=== PATIENT | female | born 1945 | race Caucasian/White ===

== ENCOUNTER → 2018-04-29 09:40 | Outpatient (CLI) | payer MEDICARE, OTHER, SELFPAY ==
--- NOTE | 2018-04-29 09:49 | XR_ITS ---
XR chest 2V HISTORY: ITS.REASON: PULMONARY MAC, ASPERGILLOSIS,NODULE,COPD ORDERING PHYSICIAN: Manuel Reeder PATIENT AGE: 72 years COMPARISON: 09/12/2014 FINDINGS: Unremarkable cardiovascular structures. There are chronic changes present with COPD with some patchy increased density in the right middle and right lower lobe and left lower lobe. This is somewhat progressed compared to the previous exam. The no recent radiographs are available for comparison. There is levoscoliosis of the lumbar spine. There has been interval kyphoplasty at L2 with wedge compression changes of L2 with retrolisthesis of L2 x 6 mm. IMPRESSION: Chronic changes with increased density in the right middle lobe, right lower lobe, and left lower lobe which may be related to superimposed pneumonia.
== END ==
PROVIDERS: PCP Family Medicine; Visit Provider Internal Medicine Infectious Disease
DX: A31.0 Pulmonary mycobacterial infection (principal); B44.1 Other pulmonary aspergillosis; R91.1 Solitary pulmonary nodule; R63.6 Underweight; R84.5 Abnormal microbiological findings in specimens from respiratory organs and thorax; J44.9 Chronic obstructive pulmonary disease, unspecified; G20 Parkinson's disease; Z87.01 Personal history of pneumonia (recurrent)
CPT/HCPCS: 71046

== ENCOUNTER → 2018-05-12 08:50 | Outpatient (REF) | payer MEDICARE, OTHER, SELFPAY | LOC: LAB 08:50 | PROVIDERS: Visit Provider Internal Medicine Infectious Disease | DX: G20 Parkinson's disease (principal); H35.30 Unspecified macular degeneration; A31.0 Pulmonary mycobacterial infection; B44.1 Other pulmonary aspergillosis; R91.1 Solitary pulmonary nodule; R63.6 Underweight; R84.5 Abnormal microbiological findings in specimens from respiratory organs and thorax; J44.9 Chronic obstructive pulmonary disease, unspecified | CPT/HCPCS: 87116; 87206 ==

== ENCOUNTER → 2018-05-13 08:59 | Outpatient (REF) | payer MEDICARE, OTHER, SELFPAY | LOC: LAB 08:59 | PROVIDERS: Visit Provider Internal Medicine Infectious Disease | DX: A31.0 Pulmonary mycobacterial infection (principal); B44.1 Other pulmonary aspergillosis; R91.1 Solitary pulmonary nodule; R63.6 Underweight; R84.5 Abnormal microbiological findings in specimens from respiratory organs and thorax; J44.9 Chronic obstructive pulmonary disease, unspecified; H35.30 Unspecified macular degeneration; G20 Parkinson's disease | CPT/HCPCS: 87116; 87206 ==

== ENCOUNTER → 2018-08-07 10:35 | Outpatient (CLI) | payer MEDICARE, SELFPAY ==
--- NOTE | 2018-08-07 10:42 | XR_ITS ---
EXAM: XR lumbar spine min 4V HISTORY: ITS.REASON: LOW BACK PAIN ORDERING PHYSICIAN: Haris Herrera MD PATIENT AGE: 72 years COMPARISON: 11/27/2016 FINDINGS: There is moderate to severe lumbar scoliosis convex left measuring 29 degrees. This previously measured 20 degrees. There has been prior kyphoplasty at L1. There is nonmillimeters left lateral translation of L3 on L4. The lateral view is somewhat limited due to the scoliosis and radiographic technique. There does appear to have been increase in wedging of L3 compared to 11/27/2016. This is most evident on the AP and oblique images but not well-demonstrated on the lateral images. Consider MRI or CT for further evaluation due to the limitation. No obvious lytic or blastic change. Multilevel degenerative disc disease and facet arthritic changes noted IMPRESSION: 1. Slight increase in levoscoliosis 2. Status post kyphoplasty at L1. 3. Slight increased wedging of L3 4. Degenerative disc disease
== END ==
PROVIDERS: PCP Family Medicine; Visit Provider Family Medicine
DX: M54.5 Low back pain (principal)
CPT/HCPCS: 72110

== ENCOUNTER → 2018-09-08 07:47 | Outpatient (CLI) | payer MEDICARE, SELFPAY ==
--- NOTE | 2018-09-08 07:49 | CT_ITS ---
CT lumbar spine wo con INDICATION: ITS.REASON: LOW BACK PAIN ORDERING PHYSICIAN: Haris Herrera MD PATIENT AGE: 73 years COMPARISON: 11/27/2016 TECHNIQUE: Axial images obtained with sagittal and coronal reformats. All CT scans at the facility use one or more dose reduction, viz: automated exposure control, ma/kV adjustment per patient size (including targeted exams where dose is matched to indication, i.e. head), or iterative reconstruction technique. FINDINGS: There is moderate mid and upper lumbar scoliosis convex left measuring 35 degrees by the Verma technique. Status post vertebroplasty at L1 with 60% anterior wedge compression changes of L1. L1 is the apex of the scoliosis. Prior kyphoplasty at this level. There is minimal retropulsion of the posterior superior aspect of L1 by approximately 5 mm. L2 has an unremarkable appearance. L2-L3: Wedge compression changes involve the L3 vertebral body with loss of height superiorly of approximately 20%. There is 7 mm left lateral translation of L2 on L3 L3-L4: Degenerative disc disease. There is 8 mm left lateral translation of L3 on L4 with degenerative disc disease and bulging disc. There is mild wedge compression changes involving the superior endplate of L4 approximately 10% with mild posterior region of L4 along with facet and ligamentum flavum hypertrophy with bilateral lateral recess narrowing. L4-5: Degenerative disc disease with bulging disc. There is mild wedging involving the superior endplate of L5 anteriorly of 25-30% appears old. Bulging discs present at this level with facet and ligamentum hypertrophy with bilateral lateral recess and foraminal narrowing. L5-S1 has an unremarkable appearance. There are fibrotic changes in the lung bases with bronchial thickening. IMPRESSION: Abnormal CT of the lumbar spine with scoliosis and multiple wedge compression changes, status post L1 vertebroplasty with multilevel lumbar spondylosis with bulging disc along with facet and ligamentum flavum hypertrophy with lateral recess and foraminal narrowing. Kyphoscoliosis is present of the thoracolumbar junction. Please see above for detailed description at each level.
== END ==
PROVIDERS: PCP Family Medicine; Visit Provider Family Medicine
DX: M54.5 Low back pain (principal)
CPT/HCPCS: 72131

== ENCOUNTER → 2018-09-15 08:12 | Outpatient (POV) | payer MEDICARE, SELFPAY | PROVIDERS: Visit Provider Nurse Practitioner Acute Care | DX: Z00.00 Encounter for general adult medical examination without abnormal findings (principal) ==

== ENCOUNTER → 2018-10-10 08:45 | Outpatient (CLI) | payer MEDICARE, SELFPAY ==
--- NOTE | 2018-10-10 08:51 | NM_ITS ---
NM bone scan limited area CLINICAL INDICATION: ITS.REASON: LOWER BACK PAIN ORDERING PHYSICIAN: Stevie Alegria PATIENT AGE: 73 years Comparison: 09/08/2018 FINDINGS: Static images are obtained of the thoracic and lumbar spine. There is a moderate lumbar scoliosis convex left. Focal increased activity involves L1 on the left. The patient has had a prior vertebral plasty at L1. Increased activity is noted on the left and right at L2 and to a greater degree on the left and right at L3. There is mild left lateral translation of L3 on L4. Slight increased activity involves the left aspect of L4 and L5. FINDINGS all correspond to degenerative changes were noted on previous CT scan of 09/08/2018.. The increased activity at L3 may also be related to the wedge compression changes as well as noted on previous CT scan. The thoracic spine has an unremarkable appearance. There is slight increased activity involving right 10th rib posteriorly IMPRESSION: Lumbar scoliosis convex left with multiple areas of increased activity corresponding to the degenerative changes noted on the L-spine CT scan as well as a compression changes at L3
--- NOTE | 2018-10-10 14:27 | HMH.ITSHM ---
Current Home Medications as stated by this patient Niya Sneed or community health program representative. []AMANTADINE TRAZADONE CHLORDIAZEPOXIDE VITAMIN C B COMPLEX ACTONEL REQUIP
== END ==
PROVIDERS: PCP Family Medicine; Visit Provider Orthopaedic Surgery
DX: M54.6 Pain in thoracic spine (principal); M54.5 Low back pain
CPT/HCPCS: 78300; A9503

== ENCOUNTER → 2018-11-21 08:32 | Outpatient (CLI) | payer MEDICARE, SELFPAY ==
--- NOTE | 2018-11-21 08:40 | XR_ITS ---
XR DEXA axial skeleton HISTORY: ITS.REASON: L2 L3 COMPRESSION FX ORDERING PHYSICIAN: Stevie Alegria PATIENT AGE: 73 years COMPARISON: 05/17/2016 FINDINGS: The BMD measured at the Left femoral Total is 0.580 g/cm squared with a T score of -3.4. This is considered Osteoporotic according to the World Health Organization criteria. Fracture risk is High. Treatment is advised. L1 L4 density as a T score of -2.3 and has increased by 8% compared to the previous exam. Hip density has decreased by 7%. There is severe lumbar scoliosis convex left with prior kyphoplasty in the lumbar spine IMPRESSION: Osteoporosis with high fracture risk. Pharmacological treatment suggested. Recommend follow-up exam October 2019
== END ==
PROVIDERS: PCP Family Medicine; Visit Provider Orthopaedic Surgery
DX: M48.56XA Collapsed vertebra, not elsewhere classified, lumbar region, initial encounter for fracture (principal)
CPT/HCPCS: 77080

== ENCOUNTER 2018-12-16 09:05 | Outpatient (CLI) | payer MEDICARE, SELFPAY ==
[2018-12-16 09:30] VITALS: BP 115/68; PULSE 68; RESP 20; TEMP 36.9; O2SAT 98
== END 2018-12-16 10:20 | disposition home or self-care (01) ==
LOC: INF 09:05
PROVIDERS: Visit Provider Family Medicine
DX: M81.0 Age-related osteoporosis without current pathological fracture (principal)
CPT/HCPCS: 96372; J0897

== ENCOUNTER → 2019-01-05 10:40 | Outpatient (POV) | payer MEDICARE, SELFPAY | PROVIDERS: Visit Provider Nurse Practitioner Acute Care | DX: Z00.00 Encounter for general adult medical examination without abnormal findings (principal) ==

== ENCOUNTER → 2019-01-20 08:32 | Outpatient (CLI) | payer MEDICARE, SELFPAY ==
[2019-01-21 15:44] LABS: H. pylori Breath Test Positive (Negative)
== END ==
PROVIDERS: Visit Provider Nurse Practitioner Acute Care
DX: B96.81 Helicobacter pylori [H. pylori] as the cause of diseases classified elsewhere (principal); Z12.11 Encounter for screening for malignant neoplasm of colon
CPT/HCPCS: 83013

== ENCOUNTER → 2019-05-05 09:15 | Outpatient (CLI) | payer MEDICARE, SELFPAY ==
--- NOTE | 2019-05-05 09:21 | XR_ITS ---
XR chest 2V HISTORY: ITS.REASON: COPD,PARKINSONS DISEASE, ORDERING PHYSICIAN: Manuel Reeder PATIENT AGE: 73 years COMPARISON: 04/29/2018 FINDINGS: The cardiomediastinal silhouette and pulmonary vascularity are within normal limits. COPD. Chronic changes. Prior kyphoplasty in the lumbar spine at L1-L2 and L3. IMPRESSION: No change with no acute finding
== END ==
PROVIDERS: PCP Family Medicine; Visit Provider Internal Medicine Infectious Disease
DX: A31.0 Pulmonary mycobacterial infection (principal); B44.1 Other pulmonary aspergillosis; B96.81 Helicobacter pylori [H. pylori] as the cause of diseases classified elsewhere; K29.60 Other gastritis without bleeding; J44.9 Chronic obstructive pulmonary disease, unspecified; G20 Parkinson's disease; Z87.01 Personal history of pneumonia (recurrent); Z86.19 Personal history of other infectious and parasitic diseases
CPT/HCPCS: 71046

== ENCOUNTER 2019-06-19 12:57 | Outpatient (CLI) | payer MEDICARE, SELFPAY ==
[2019-06-19 13:07] VITALS: BP 149/90; PULSE 84; RESP 18
== END 2019-06-19 13:20 | disposition home or self-care (01) ==
LOC: INF 12:57
PROVIDERS: Visit Provider Family Medicine
DX: M81.0 Age-related osteoporosis without current pathological fracture (principal)
CPT/HCPCS: 96372; J0897

== ENCOUNTER 2019-12-21 08:45 | Outpatient (CLI) | payer MEDICARE, SELFPAY ==
[2019-12-21 09:01] VITALS: BP 155/93; PULSE 83; RESP 18; TEMP 36.6; O2SAT 98
== END 2019-12-21 09:24 | disposition home or self-care (01) ==
LOC: INF 08:45
PROVIDERS: Visit Provider Nurse Practitioner Family
DX: M81.0 Age-related osteoporosis without current pathological fracture (principal)
CPT/HCPCS: 96372; J0897

== ENCOUNTER → 2020-04-26 08:22 | Outpatient (CLI) | payer MEDICARE, SELFPAY ==
--- NOTE | 2020-04-26 08:33 | XR_ITS ---
PROCEDURE: XR CHEST 2V CLINICAL HISTORY: COPD COMPARISON: CXR CHEST(2 VIEWS-NOT PORTABLE) from 09/12/2014 CXR CHEST(2 VIEWS-NOT PORTABLE) from 10/26/[address] [facility] [address] CHEST W/O CONTRAST from 06/08/2016 CXR2V XR chest 2V from 04/29/2018 FINDINGS: The cardiomediastinal silhouette and pulmonary vascularity are within normal limits. COPD with pulmonary fibrotic changes are noted. There is increased density within the lingula may be due to underlying pneumonia. Suggest following till clear as this has a somewhat nodular appearance on frontal view. There is diffuse osteopenia. Prior kyphoplasty at L1 and L2. Lumbar curvature convex left. IMPRESSION: COPD with pulmonary fibrotic change with consolidation or infiltrate within the lingula. Suggest following till clear Dictated by: Valentín Hedrick MD 04/26/2020 16:34 Electronically signed by Valentín Hedrick MD in [place] 04/26/2020 16:34
== END ==
PROVIDERS: PCP Family Medicine; Visit Provider Internal Medicine Infectious Disease
DX: K29.60 Other gastritis without bleeding (principal); B96.81 Helicobacter pylori [H. pylori] as the cause of diseases classified elsewhere; A31.0 Pulmonary mycobacterial infection; B44.1 Other pulmonary aspergillosis; J44.9 Chronic obstructive pulmonary disease, unspecified; G20 Parkinson's disease
CPT/HCPCS: 71046

== ENCOUNTER 2020-06-22 14:07 | Outpatient (CLI) | payer MEDICARE, SELFPAY ==
[2020-06-22 14:17] VITALS: BP 152/64; PULSE 68; RESP 18; TEMP 36.3; O2SAT 98
== END 2020-06-22 14:17 | disposition home or self-care (01) ==
LOC: INF 14:07
PROVIDERS: Visit Provider Nurse Practitioner Family
DX: M81.0 Age-related osteoporosis without current pathological fracture (principal)
CPT/HCPCS: 96372; J0897

== ENCOUNTER 2020-07-14 11:00 | Outpatient (RCR) | payer MEDICARE, SELFPAY | END 2020-07-14 12:00 | disposition home or self-care (01) | LOC: PT 11:00 | PROVIDERS: PCP Family Medicine; Visit Provider Physician Assistant | DX: M70.61 Trochanteric bursitis, right hip (principal) | CPT/HCPCS: 20560; 97010; 97014; 97035; 97110; 97140; 97163; 97164; G0283 ==

== ENCOUNTER 2021-01-23 09:55 | Outpatient (CLI) | payer MEDICARE, SELFPAY ==
[2021-01-23 10:16] VITALS: BP 162/87; PULSE 69; RESP 18; TEMP 36.1; O2SAT 98
== END 2021-01-23 10:32 | disposition home or self-care (01) ==
LOC: INF 10:05
PROVIDERS: Visit Provider Family Medicine
DX: M81.0 Age-related osteoporosis without current pathological fracture (principal)
CPT/HCPCS: 96372; J0897

== ENCOUNTER 2021-07-26 09:28 | Outpatient (CLI) | payer MEDICARE, SELFPAY ==
[2021-07-26 09:55] VITALS: BP 141/87; PULSE 71; RESP 17; TEMP 36.4; O2SAT 96
== END 2021-07-26 09:57 | disposition home or self-care (01) ==
LOC: INF 09:29
PROVIDERS: PCP Family Medicine; Visit Provider Family Medicine
DX: M81.0 Age-related osteoporosis without current pathological fracture (principal)
CPT/HCPCS: 96372; J0897

== ENCOUNTER 2022-01-23 09:56 | Outpatient (CLI) | payer MEDICARE, SELFPAY ==
[2022-01-23 10:10] VITALS: BP 156/62; PULSE 61; RESP 18; TEMP 36.3; O2SAT 96
== END 2022-01-23 10:23 | disposition home or self-care (01) ==
LOC: INF 09:58
PROVIDERS: PCP Family Medicine; Visit Provider Nurse Practitioner Family
DX: M81.0 Age-related osteoporosis without current pathological fracture (principal)
CPT/HCPCS: 96372; J0897

== ENCOUNTER 2022-07-27 10:25 | Outpatient (CLI) | payer MEDICARE, SELFPAY ==
[2022-07-27 10:45] VITALS: BP 161/73; PULSE 68; RESP 18; O2SAT 96
== END 2022-07-27 11:00 | disposition home or self-care (01) ==
LOC: INF 10:29
PROVIDERS: PCP Nurse Practitioner Family; Visit Provider Nurse Practitioner Family
DX: Z78.0 Asymptomatic menopausal state (principal); M81.0 Age-related osteoporosis without current pathological fracture
CPT/HCPCS: 96372; J0897

== ENCOUNTER 2022-12-01 17:21 | Emergency (ER) | payer MEDICARE, SELFPAY ==
[2022-12-01 17:24] VITALS: BP 181/91; PULSE 89; RESP 26; TEMP 36.6; O2SAT 98; BMI 17.7
[2022-12-01 17:33] VITALS: BP 181/91; PULSE 84; O2SAT 97
--- NOTE | 2022-12-01 17:55 | XR_ITS ---
PROCEDURE INFORMATION: Exam: XR Chest Exam date and time: 12/01/2022 6:49 PM Age: 77 years old Clinical indication: Shortness of breath; Additional info: SOA, covid+ TECHNIQUE: Imaging protocol: Radiologic exam of the chest. Views: 1 view. COMPARISON: CT ANGIO CHEST PE PROTOCOL 12/01/2022 6:43 PM FINDINGS: Lungs: Unremarkable. No consolidation. Pleural spaces: Unremarkable. No pleural effusion. No pneumothorax. Heart/Mediastinum: Unremarkable. No cardiomegaly. Bones/joints: There is moderate thoracolumbar scoliosis. Evidence of prior vertebroplasty noted in the upper lumbar spine. Bones are otherwise unremarkable. IMPRESSION: No acute disease
--- NOTE | 2022-12-01 17:55 | HMH.EDGENADL ---
Discharge Plan Disposition Patient Disposition: Home, Self-Care Condition: Good Prescriptions Prescriptions: New Paxlovid (EUA) 300 mg (150 mg x 2)-100 mg tablets,dose pack See Rx Instructions .Route .COMPLEX Qty: 30 0RF Rx Instructions: take TWO 150 mg tablets of nirmatrelvir with ONE 100 mg tablet of ritonavir twice daily for 5 days levofloxacin 750 mg tablet 750 mg PO DAILY 5 Days Qty: 5 0RF No Action tramadol 50 mg tablet 50 mg PO Q6HP PRN (Reason: Pain) Label Comments: TAKE ONE TABLET BY MOUTH EVERY 6 TO 8 HOURS NEEDED MAY CAUSE DROWSINESS lorazepam 0.5 mg tablet 0.5 mg PO HS trazodone 300 mg tablet 300 mg PO HS Label Comments: TAKE ONE TABLET BY MOUTH EVERY DAY AT BEDTIME escitalopram oxalate 10 mg tablet 10 mg PO DAILY Label Comments: TAKE ONE TABLET BY MOUTH EVERY DAY cholecalciferol (vitamin D3) 25 mcg (1,000 unit) tablet 25 mcg PO DAILY Label Comments: TAKE ONE TABLET BY MOUTH EVERY DAY Referrals Follow up/Referrals: Haris Herrera MD [Primary Care Provider] - See instructions Activity Restrictions/Add. Instructions Additional Instructions/Restrictions: Paxlovid and Levaquin as prescribed. Do not take trazodone while taking these medications. ADDITIONAL INSTRUCTIONS FOR COVID-19: Rest, drink plenty of fluids. Tylenol or Ibuprofen for fever and/or aches and pains. Monitor your symptoms. IF YOU HAVE AN EMERGENCY WARNING SIGN (INCLUDING TROUBLE BREATHING), SEEK EMERGENCY MEDICAL CARE IMMEDIATELY. COVID-19 Isolation: People with COVID-19 should isolate for 5 days. Then if they are asymptomatic (no symptoms) or their symptoms are resolving (without fever for 24 hours), follow that by 5 days of wearing a mask when around others to minimize the risk of infecting people you encounter. If you test positive for COVID-19 and never develop symptoms, day 0 is the day of your positive viral test (based on the date you were tested) and day 1 is the first full day after your positive test. If you develop symptoms after testing positive, your 5-day isolation period must start over. Day 0 is your first day of symptoms. Day 1 is the first full day after your symptoms developed. What to do: Stay in a separate room from other household members, if possible. Use a separate bathroom, if possible. Avoid contact with other members of the household and pets. Don?t share personal household items, like cups, towels, and utensils. Wear a mask when around other people if able. Clinical Impressions Clinical Impression: COVID-19 virus infection, Pulmonary infiltrate Instructions Patient Instructions: DI for COVID-19 (Suspected or Confirmed ) Discharge ED Provider: Justyn Wagner General Adult HPI General Chief complaint: Shortness of Breath/Dyspnea Stated complaint: covid + SOB,Cough [place]ST[place] Diarrhea,Body Aches Time Seen by Provider: 12/01/22 17:55 Mode of Arrival: Wheelchair Source of Information: Patient Limitations: No Limitations Description of Symptoms (Recalled from ER Triage Doc. by RN): 77 F presents after having positive COVID home test on . She began having COVId like symptoms on Saturday. This date she presents tachypenic/SOA, generalized weakness, and cough. History of Present Illness HPI narrative: Patient complains of shortness of breath. She developed a cough on Saturday. Her daughter tested positive for COVID on that day. The next day the patient also tested positive for COVID on a home test. She has developed shortness of breath today has an achy pain in the center of her chest. Denies sputum production or hemoptysis. No leg pain or swelling. She has been vaccinated and is up-to-date on boosters for COVID. She does not have any chronic lung or heart problems. She is a non-smoker. Related Data Home Medications Medication Instructions Recorded Confirmed cholecalciferol (vitamin D3) 25 25 mcg PO DAILY Supp
[2022-12-01 18:00] VITALS: BP 167/88; PULSE 81; RESP 20; O2SAT 95
--- NOTE | 2022-12-01 18:00 | CT_ITS ---
PROCEDURE INFORMATION: Exam: CTA Chest With Contrast Exam date and time: 12/01/2022 6:43 PM Age: 77 years old Clinical indication: Shortness of breath; Additional info: Lilian, VALE and shahrzad TECHNIQUE: Imaging protocol: Computed tomographic angiography of the chest with contrast. 3D rendering (Not supervised by radiologist): MIP and/or 3D reconstructed images were created by the technologist. Radiation optimization: All CT scans at this facility use at least one of these dose optimization techniques: automated exposure control; mA and/or kV adjustment per patient size (includes targeted exams where dose is matched to clinical indication); or iterative reconstruction. Contrast material: ISOVUE; Contrast volume: 70 ml; Contrast route: INTRAVENOUS (IV); Other protocol: This patient has received 0 known CTs and 0 known cardiac nuclear medicine studies in the 12 months prior to the current study. COMPARISON: [facility] CT CHEST W/O CONTRAST 06/08/2016 1:03 PM FINDINGS: Pulmonary arteries: Normal. No pulmonary emboli. Aorta: Unremarkable. No aortic aneurysm. No aortic dissection. Lungs: Patchy diffusely distributed bilateral pulmonary infiltrates appear improved from the prior study. There is an 8 mm slightly spiculated nodule in the right lower lobe on axial image 70. A few other smaller scattered areas of nodular infiltrate are noted in both lungs. Pleural spaces: Unremarkable. No pneumothorax. No pleural effusion. Heart: Unremarkable. No cardiomegaly. No pericardial effusion. Lymph nodes: Unremarkable. No enlarged lymph nodes. Bones/joints: There is significant levoscoliosis of the thoracolumbar spine. Soft tissues: Unremarkable. IMPRESSION: 1. Interval improvement in mild patchy bilateral pulmonary infiltrates. This may reflect active pneumonitis and/or mild chronic interstitial lung changes. 2. Interval development of 8 mm slightly spiculated nodule in the right lower lobe. For patients at low risk (minimal or absent history of smoking and of other known risk factors), recommend CT Chest at 6-12 months, then consider CT Chest at 18-24 months. For patients at high risk (history of smoking or of other known risk factors), recommend CT Chest at 6-12 months, then CT Chest at 18-24 months. (Reference: Diane) References: Diane Cabrera et al. Guidelines for Management of Incidental Pulmonary Nodules Detected on CT Images: From the Fleischner Society 2017. Radiology. 2017;284(1):228-243.
[2022-12-01 18:16] LABS: Basophils % 0.6 % (0.1-2.0); Eosinophils % 0.3 % (0.1-12.0); Hematocrit 45.1 % (37.0-47.0); Hemoglobin 14.8 g/dL (12.2-16.2); Lymphocytes # 1.2 K/mm3 (0.7-4.5); Mean Corpuscular HGB Conc 32.9 g/dL (31.8-35.4); Mean Corpuscular Hemoglobin 30.4 pg (27.0-31.2); Mean Corpuscular Volume 92.6 fl (81-99); Mean Platelet Volume 8.3 fl (7.4-10.4); Monocytes # 0.5 K/mm3 (0.1-1.0); Neutrophils # 4.7 K/mm3 (1.8-7.8); Neutrophils % 72.2 % (37.0-80.0); Platelet Count 178 K/mm3 (142-424); Red Blood Count 4.87 M/mm3 (4.20-5.40); Red Cell Distribution Width 13.5 % (11.5-17.5); White Blood Count 6.6 K/mm3 (4.8-10.8)
[2022-12-01 18:17] LABS: Chloride 104 mmol/L (98-107)
[2022-12-01 18:18] LABS: Potassium 3.6 mmoL/L (3.5-5.1); Sodium 138 mmol/L (136-145)
[2022-12-01 18:20] LABS: Alanine Aminotransferase 28 U/L (12-78); Aspartate Amino Transferase 41 U/L (14-36); Blood Urea Nitrogen 7 mg/dl (7-17); Creatinine Clearance Estimated 37 mL/min (50-200); Estimated Glomerular Filt Rate 120 ml/min (>60); GFR (African American) 145 ML/MIN (>60)
[2022-12-01 18:21] LABS: Albumin Level 4.3 g/dl (3.5-5.0); Albumin/Globulin Ratio 1.3 (1.1-1.8); Alkaline Phosphatase 90 U/L (38-126); Anion Gap 11.6 mEq/L (5-15); Bilirubin,Total 0.5 mg/dl (0.2-1.3); Calcium 8.3 mg/dl (8.4-10.2); Carbon Dioxide 26 mmol/L (22.0-30.0); Globulin 3.2 g/dL (1.3-3.2); Glucose 122 mg/dl (74-100); Total Protein,Serum 7.5 g/dl (6.3-8.2)
[2022-12-01 18:30] LABS: NT Pro Brain Natriuretic Pep. 92.4 pg/mL (0-450)
[2022-12-01 18:39] LABS: Troponin I < 0.01 ng/ml (0.00-0.034)
[2022-12-01 19:00] VITALS: BP 156/77; PULSE 69; RESP 21; O2SAT 95
[2022-12-01 19:30] VITALS: BP 156/78; RESP 21; O2SAT 96
[2022-12-01 19:52] LABS: Influenza A, PCR Not Detected (NotDetected); Influenza B, PCR Not Detected (NotDetected)
--- NOTE | 2022-12-01 19:52 | PC.NURSE ---
Dr. Wagner at BS
--- NOTE | 2022-12-01 20:21 | PC.NURSE ---
Lab advised 14 minutes remaining on covid swab
[2022-12-01 20:31] VITALS: BP 155/77; PULSE 88; RESP 21; TEMP 36.8; O2SAT 97
[2022-12-01 20:38] LABS: Coronavirus 19, PCR Detected (NotDetected)
--- NOTE | 2022-12-01 20:40 | PC.NURSE ---
Dr. Wagner at updating pt of results
== END 2022-12-01 20:44 | disposition home or self-care (01) ==
PROVIDERS: Emergency Provider Emergency Medicine; PCP Family Medicine
DX: U07.1 COVID-19 (principal); R91.8 Other nonspecific abnormal finding of lung field; M81.0 Age-related osteoporosis without current pathological fracture; R06.02 Shortness of breath
CPT/HCPCS: 71045; 71275; 80053; 83880; 84484; 85025; 99285; C9803; Q9967; U0003; U0005

== ENCOUNTER 2023-01-24 09:00 | Outpatient (CLI) | payer MEDICARE, SELFPAY ==
[2023-01-24 09:17] VITALS: BP 167/81; PULSE 74; RESP 18; O2SAT 95
== END 2023-01-24 09:17 | disposition home or self-care (01) ==
PROVIDERS: PCP Family Medicine; Visit Provider Family Medicine
DX: M81.0 Age-related osteoporosis without current pathological fracture (principal)
CPT/HCPCS: 96372; J0897

== ENCOUNTER → 2023-06-10 16:08 | Outpatient (CLI) | payer MEDICARE, SELFPAY ==
[2023-06-10 16:35] LABS: Basophils % 0.7 % (0.1-2.0); Eosinophils # 0.2 K/mm3 (0.0-0.4); Eosinophils % 3.3 % (0.1-12.0); Hematocrit 44.3 % (37.0-47.0); Hemoglobin 13.9 g/dL (12.2-16.2); Lymphocytes # 1.4 K/mm3 (0.7-4.5); Lymphocytes % 24.2 % (10-50); Mean Corpuscular HGB Conc 31.4 g/dL (31.8-35.4); Mean Corpuscular Hemoglobin 30.4 pg (27.0-31.2); Mean Corpuscular Volume 96.7 fl (81-99); Mean Platelet Volume 8.2 fl (7.4-10.4); Monocytes # 0.4 K/mm3 (0.1-1.0); Neutrophils # 3.6 K/mm3 (1.8-7.8); Neutrophils % 64.7 % (37.0-80.0); Platelet Count 160 K/mm3 (142-424); Red Blood Count 4.58 M/mm3 (4.20-5.40); Red Cell Distribution Width 13.4 % (11.5-17.5); White Blood Count 5.6 K/mm3 (4.8-10.8)
[2023-06-10 17:15] LABS: Alanine Aminotransferase 19 U/L (12-78); Albumin Level 4.3 g/dl (3.5-5.0); Albumin/Globulin Ratio 1.7 (1.1-1.8); Alkaline Phosphatase 63 U/L (38-126); Anion Gap 9.7 mEq/L (5-15); Aspartate Amino Transferase 27 U/L (14-36); Bilirubin,Total 0.3 mg/dl (0.2-1.3); Blood Urea Nitrogen 8 mg/dl (7-17); Calcium 9.6 mg/dl (8.4-10.2); Carbon Dioxide 31 mmol/L (22.0-30.0); Chloride 103 mmol/L (98-107); Chol/HDL Ratio 2.4 (1-3.5); Cholesterol 251 mg/dl (140-200); Estimated Glomerular Filt Rate 81 ml/min (>60); GFR (African American) 98 ML/MIN (>60); Globulin 2.6 g/dL (1.3-3.2); Glucose 94 mg/dl (74-100); HDL Cholesterol 103 mg/dl (40-60); Potassium 3.7 mmoL/L (3.5-5.1); Sodium 140 mmol/L (136-145); Total Protein,Serum 6.9 g/dl (6.3-8.2); Triglycerides 98 mg/dl (30-150); VLDL Cholesterol 20 mg/dL (0-40)
[2023-06-10 17:26] LABS: Direct LDL Cholesterol 110.21 mg/dL (100-129)
[2023-06-10 17:31] LABS: Free T4 (Free Thyroxine) 1.06 ng/dl (0.78-2.19)
[2023-06-10 17:32] LABS: 25-OH Vitamin D, Total 55.3 ng/mL (30-100)
[2023-06-10 17:45] LABS: Thyroid Stimulating Hormone 1.05 uIU/mL (0.465-4.68)
[2023-06-10 19:33] LABS: Folate 7.02 ng/mL; Vitamin B12 > 1000 pg/mL (239-931)
== END ==
PROVIDERS: PCP Nurse Practitioner Family; Visit Provider Nurse Practitioner Family
DX: R53.1 Weakness (principal); I10 Essential (primary) hypertension; M81.0 Age-related osteoporosis without current pathological fracture; E53.8 Deficiency of other specified B group vitamins
CPT/HCPCS: 36415; 80053; 80061; 82306; 82607; 82746; 84439; 84443; 85025

== ENCOUNTER 2023-08-06 11:21 | Outpatient (CLI) | payer MEDICARE, SELFPAY ==
[2023-08-06 11:30] VITALS: BP 140/66; PULSE 80; RESP 18; TEMP 36.8; O2SAT 96
== END 2023-08-06 11:46 | disposition home or self-care (01) ==
LOC: INF 11:21
PROVIDERS: PCP Family Medicine; Visit Provider Family Medicine
DX: M81.0 Age-related osteoporosis without current pathological fracture (principal)
CPT/HCPCS: 96372; J0897

== ENCOUNTER 2024-03-10 13:18 | Outpatient (CLI) | payer MEDICARE, SELFPAY ==
[2024-03-10 13:25] VITALS: BP 141/82; PULSE 90; RESP 18; TEMP 36.2; O2SAT 96
[2024-03-10] MEDS: DENOSUMAB 60 MG/ML SYRINGE SQ (13:27)
== END 2024-03-10 13:45 | disposition home or self-care (01) ==
LOC: INF 13:19
PROVIDERS: PCP Family Medicine; Visit Provider Family Medicine
DX: M81.0 Age-related osteoporosis without current pathological fracture (principal)
CPT/HCPCS: 96372; J0897

== ENCOUNTER 2024-09-15 13:00 | Outpatient (CLI) | payer MEDICARE, SELFPAY ==
[2024-09-15 13:41] VITALS: BP 149/77; PULSE 72; RESP 18; TEMP 36.4; O2SAT 94
[2024-09-15] MEDS: DENOSUMAB 60 MG/ML SYRINGE SUBCUT (13:41)
== END 2024-09-15 13:55 | disposition home or self-care (01) ==
LOC: INF 13:02
PROVIDERS: PCP Family Medicine; Visit Provider Family Medicine
DX: M81.0 Age-related osteoporosis without current pathological fracture (principal)
CPT/HCPCS: 96372; J0897

== ENCOUNTER 2024-12-30 11:28 | Outpatient (CLI) | payer MEDICARE, SELFPAY ==
--- NOTE | 2024-12-30 11:36 | XR_ITS ---
FINAL REPORT CLINICAL HISTORY: RIB PAIN ON THE RIGHT SIDE COMPARISON: 12/01/2022 FINDINGS: PA and lateral views of the chest were obtained. No acute pulmonary density is evident. There are changes of emphysema. Chronic interstitial changes are noted. There is no evidence of pleural effusion. The mediastinum has a normal appearance. The cardiac silhouette is unremarkable. IMPRESSION: No acute findings. Reviewed, Interpreted and Dictated by Marge Vásquez MD Transcribed by Vesta Rodriguez Authenticated and . [facility]
== END 2024-12-30 23:59 | disposition home or self-care (01) ==
LOC: RAD 11:29
PROVIDERS: PCP Family Medicine; Visit Provider Family Medicine
DX: R07.81 Pleurodynia (principal)
CPT/HCPCS: 71046

== ENCOUNTER 2025-01-14 10:44 | Outpatient (CLI) | payer MEDICARE, SELFPAY ==
--- NOTE | 2025-01-14 10:48 | MM_ITS ---
PROCEDURE INFORMATION: Exam: MG Bilateral Screening 3D Mammography Exam date and time: 01/14/2025 10:53 AM Age: 79 years old Clinical indication: Screening. No family history of breast cancer. TECHNIQUE: Imaging protocol: Bilateral Screening tomosynthesis and 2D mammography including computer-aided detection (CAD) when performed. COMPARISON: 1. MG DMSB DIG MAMM-SCREEN SUDHEER W/CAD 10/29/2016 9:34 AM 2. MG DMDXUR DIG MAMM-DX UNI-RT 03/14/2016 11:15 AM 3. MG DMSB DIG MAMM-SCREEN SUDHEER 10/25/2015 3:04 PM 4. MG DMSB DIG MAMM-SCREEN SUDHEER 10/11/2014 1:40 PM FINDINGS: MAMMOGRAPHY: Breast composition: The breasts are heterogeneously dense, which may obscure small masses. Mass: Oval partly visualized approximately 0.8 cm mass in the right outer lower quadrant posterior 3rd about 6-8 cm from the nipple. Architectural distortion: None. Calcifications: No suspicious calcifications. Asymmetric density: None. Skin thickening: None. Axillary adenopathy: None. IMPRESSION: Patient will be recalled for right diagnostic mammography with spot compression CC and MLO and right sonography for further evaluation of a partly visualized mass. ASSESSMENT: BI-RADS Category 0: Incomplete: Need Additional Imaging Evaluation.
== END 2025-01-14 23:59 | disposition home or self-care (01) ==
LOC: RAD 10:45
PROVIDERS: PCP Family Medicine; Visit Provider Family Medicine
DX: Z12.31 Encounter for screening mammogram for malignant neoplasm of breast (principal)
CPT/HCPCS: 77063; 77067

== ENCOUNTER 2025-01-29 09:16 | Outpatient (CLI) | payer MEDICARE, SELFPAY ==
--- NOTE | 2025-01-29 09:24 | US_ITS ---
PROCEDURE INFORMATION: Exam: US Right Breast, Complete MG Right Diagnostic Breast Tomosynthesis Exam date and time: 01/29/2025 9:34 AM Age: 79 years old Clinical indication: Patient recalled on the basis of a screening mammogram for further evaluation; Right breast; Abnormal findings on imaging; Mass; Additional info: Abnormal stuart right breast TECHNIQUE: Imaging protocol: Complete ultrasound of all four quadrants of the right breast and the retroareolar regions, including ultrasound of the axilla when performed. Right Diagnostic tomosynthesis and 2D mammography including computer-aided detection (CAD) when performed. Unilateral or bilateral exam. COMPARISON: MG MM DIG SCREENING MAMM BI W/CAD 01/14/2025 10:53 AM FINDINGS: MAMMOGRAPHY: Breast composition: The breast is heterogeneously dense, which may obscure small masses (based on the most recent screening mammogram report). Breast mammogram findings: Digital diagnostic spot compression views of the right breast and 90 degree lateral view of the right breast demonstrate a persistent ovoid mass measuring approximately 1.2 cm in greatest dimension. This is noted in the posterior deep right central breast slightly inferior to the nipple line ULTRASOUND: Breast ultrasound findings: Sonographic images of the right breast including the retroareolar region, all 4 quadrants and the axilla demonstrates a 1.7 cm cyst in the 4 o'clock axis 2 cm from the nipple. Cursors were otherwise placed over normal fibrofatty tissue structures in the right 7 o'clock axis and in the right axilla. No architectural distortion or acoustical shadowing. No skin thickening or axillary adenopathy. IMPRESSION: Mass on mammography is not seen on sonography. A new presumed solid mass postmenopausal female should be regarded with some suspicious for carcinoma. It is deep and posterior however attempt at stereotactic biopsy is recommended for further evaluation ASSESSMENT: BI-RADS Category 4: Suspicious.
== END 2025-01-29 23:59 | disposition home or self-care (01) ==
LOC: RAD 09:17
PROVIDERS: PCP Family Medicine; Visit Provider Family Medicine
DX: R92.8 Other abnormal and inconclusive findings on diagnostic imaging of breast (principal)
CPT/HCPCS: 76641; 77061; 77065; G0279

== ENCOUNTER 2025-06-01 09:21 | Outpatient (CLI) | payer MEDICARE, SELFPAY ==
--- OUTSIDE RECORDS SUMMARY | 2025-06-01 09:25 | XMS_ITS | Clinical Summary ---
[facility] Address [address] [place] [address] Care Team Providers Care Tool Room Machinist Name Role Phone Erick Herrera MD Primary Care Provider [phone] Encounters Date Type Department Care Team Description 03/25/2025 Telephone [facility] [employer] [facility] [place] [address] [facility] [employer] [address] [place] [address] Aniya Cordoba RN MSN 03/23/2025 12:52 PM EDT - 03/23/2025 11:59 PM EDT Hospital Encounter [facility] [place] [address] [facility] [employer] [address] [place] [address] Abnormal mammogram Discharge Disposition: Home or Self Care 03/23/2025 12:37 PM EDT - 03/23/2025 11:59 PM EDT Hospital Encounter [facility] [place] [address] [facility] [address] [place] [address] Abnormal mammogram Discharge Disposition: Home or Self Care 03/23/2025 Travel 03/16/2025 10:49 AM EDT - 03/16/2025 11:59 PM EDT Hospital Encounter [facility] ULTRASOUND [place] [address] [facility] [address] [place] [address] Abnormal mammogram Discharge Disposition: Home or Self Care 03/16/2025 7:58 AM EDT - 03/16/2025 11:59 PM EDT Hospital Encounter [facility] [place] [address] [facility] [address] [place] [address] Abnormal mammogram Discharge Disposition: Home or Self Care 03/16/2025 Travel from Last 3 Months Family History Medical History Relation Name Comments Breast cancer Neg Hx Social History Tobacco Use Types Packs/Day Years Used Date Smoking Tobacco: Never Assessed Comments No Sex and Gender Information Value Date Recorded Sex Assigned at Not on file Legal Sex Female 1:52 PM EDT Gender Identity Not on file Sexual Orientation Not on file Last Filed Vital Signs Vital Sign Reading Time Taken Comments Blood Pressure 130/63 04/20/2015 11:05 AM EDT Pulse 85 04/20/2015 11:05 AM EDT Temperature 36.9 C (98.5 F) 12/20/2014 2:28 PM EST Respiratory Rate - - Oxygen Saturation 93% 12/20/2014 2:28 PM EST Inhaled Oxygen Concentration - - Weight 47.2 kg (103 lb 15.9 oz) 015 11:05 AM EDT Height 170.2 cm (5' 7 ) 04/20/2015 11:0 5 AM EDT Body Mass Index 16.29 04/20/2015 11:05 AM EDT Plan of Treatment Upcoming Encounters Date Type Department Care Team (Late st Contact Info) Description 09/27/2025 1:00 PM EST Appointment [facility]MO[facility]APHY [place] [address] [address] Health Maintenance Due Date Last Done Comments ANNUAL PHYSICAL 1945 DXA SCAN 1945 HEPATITIS C SCREENING 1945 RSV Vaccine - Adults (1 - 1- dose 75+ series) 2020 COVID-19 Vaccine (2023-2 5 season) 2025 08/27/2024, 08/16/2023, 07/27/2022, Additional history exists INFLUENZA VACCINE 07/28/2025 07/08/2024, , 07/27/2022, Additional history exists TDAP/TD VACCINES (2 - Td or Tdap) 05/01/2026 016 ZOSTER VACCINE Completed 05/21/2024, 12/25/2023 Pneumococcal Vaccine 50+ Completed 07/08/2024, 06/2015 MAMMOGRAM Discontinued 03/16/2025, 01/2025, 01/29/2025, Additional history exists Procedures Procedure Name Priority Date/Time Associated Diagnosis Comments MAMMO POST DEVICE PLACEMENT RIGHT Routine 03/23/2025 2:34 PM EDT Abnormal mammogram MAMMO STEREOTACTIC BREAST BIOPSY INITIAL W WO DEVICE Routine 03/23/2025 2:33 PM EDT Abnormal mammogram TISSUE PATHOLOGY EXAM Routine 03/23/2025 2:31 PM EDT US BREAST RIGHT LIMITED Routine 03/16/2025 12:06 PM EDT Abnormal mammogram MAMMO DIAGNOSTIC DIGITAL TOMOSYNTHESIS RIGHT W CAD Routine 03/16/2025 10:49 AM EDT Abnormal mammogram AMBRY GENETIC ASSESSMENT Routine 03/13/2025 4:03 PM EDT from Last 3 Months Results * Mammo Post Device Placement Right (03/23/2025 2:34 PM EDT) Anatomical Region Laterality Modality Breast Right Mammography 03/23/2025 4:05 PM EDT Impressions 03/25/2025 11:10 AM EDT Pathology results are concordant with imaging. RECOMMENDATION: Short interval right mammographic follow-up in 6 months with tomosynthesis. The patient will be called with final biopsy results and recommendations by our breast care nurse. _ PHYSICIAN ORDER DIAGNOSTIC 6 MONTH FOLLOW UP MAMMOGRAM AND/OR BREAST ULTRASOUND. DIAGNOSIS: ABNORMAL MAMMOGRAM. 03/25/2025 11:[address] Layla Georges MD on Narrative 03/25/2025 11:10 AM EDT RIGHT BREAST 9G BREVERA VACUUM-ASSISTED STEREOTACTIC/TOMOSYNTHESIS GUIDED BIOPSY: PRONE AFFIRM HISTORY: 79-year-old patient with an oval mass with partially obscured margins in the right 6:00 region. PROCEDURE: Written and verbal consent was obtained for stereotactic biopsy/tomosynthesis guided biopsy of the right breast. Time-out was observed to verify patient's identity and correct location of the breast abnormality. The breast was sterilized with Chloraprep. 10 cc of 1% lidocaine with epinephrine and 6 cc of 1% lidocaine without epinephrine were utilized for local anesthesia. A small skin incision was made with a scalpel and a 9 gauge Brevera biopsy probe was advanced into the breast. The position of the needle was confirmed with tomosynthesis/stereotactic images. 8 core samples were obtained at the biopsy site. Specimen radiograph was performed with each sample. A stoplight shaped post biopsy marking clip was placed. Routine right CC and LM mammographic images were obtained to document clip position and post biopsy changes. The clip appears to be well-positioned. Upon completion of the procedure, compression was applied to the biopsy site until all appreciable bleeding subsided and a sterile dressing was applied. Post biopsy instructions were reviewed with the patient by our clinical breast imaging staff. A written copy of these instructions was also given to the patient. The patient tolerated the procedure well and no immediate complications occurred. SUMMARY: 9G stereotactic/tomosynthesis guided and vacuum assisted core biopsy of an oval mass with partially obscured margins located in the right 6:00 region. A stoplight shaped marking clip was placed at the biopsy site. The clip is well-positioned. PATHOLOGY: Nodular fibrocystic change with dense stromal fibrosis. Calcifications present are associated with benign fibrocystic change. No atypia identified. us Layla Georges MD IMG MAMMOGRAPHY ORDERABLES Fin al Result * Mammo Stereotactic Breast Biopsy Initial With & Without Device (03/23/2025 2:33 PM EDT) Anatomical Region Laterality Modality Breast N/A Other 03/23/2025 4:05 PM EDT Impressions 03/25/2025 11:10 AM EDT Pathology results are concordant with imaging. RECOMMENDATION: Short interval right mammographic follow-up in 6 months with tomosynthesis. The patient will be called with final biopsy results and recommendations by our breast care nurse. _ PHYSICIAN ORDER DIAGNOSTIC 6 MONTH FOLLOW UP MAMMOGRAM AND/OR BREAST ULTRASOUND. DIAGNOSIS: ABNORMAL MAMMOGRAM. 03/25/2025 11:[address] Layla Georges MD on Narrative 03/25/2025 11:10 AM EDT RIGHT BREAST 9G BREVERA VACUUM-ASSISTED STEREOTACTIC/TOMOSYNTHESIS GUIDED BIOPSY: PRONE AFFIRM HISTORY: 79-year-old patient with an oval mass with partially obscured margins in the right 6:00 region. PROCEDURE: Written and verbal consent was obtained for stereotactic biopsy/tomosynthesis guided biopsy of the right breast. Time-out was observed to verify patient's identity and correct location of the breast abnormality. The breast was sterilized with Chloraprep. 10 cc of 1% lidocaine with epinephrine and 6 cc of 1% lidocaine without epinephrine were utilized for local anesthesia. A small skin incision was made with a scalpel and a 9 gauge Brevera biopsy probe was advanced into the breast. The position of the needle was confirmed with tomosynthesis/stereotactic images. 8 core samples were obtained at the biopsy site. Specimen radiograph was performed with each sample. A stoplight shaped post biopsy marking clip was placed. Routine right CC and LM mammographic images were obtained to document clip position and post biopsy changes. The clip appears to be well-positioned. Upon completion of the procedure, compression was applied to the biopsy site until all appreciable bleeding subsided and a sterile dressing was applied. Post biopsy instructions were reviewed with the patient by our clinical breast imaging staff. A written copy of these instructions was also given to the patient. The patient tolerated the procedure well and no immediate complications occurred. SUMMARY: 9G stereotactic/tomosynthesis guided and vacuum assisted core biopsy of an oval mass with partially obscured margins located in the right 6:00 region. A stoplight shaped marking clip was placed at the biopsy site. The clip is well-positioned. PATHOLOGY: Nodular fibrocystic change with dense stromal fibrosis. Calcifications present are associated with benign fibrocystic change. No atypia identified. Layla Georges MD IMG MAMMOGRAPHY ORDERABLES Fin al Result * Tissue Pathology Exam (03/23/2025 2:31 PM EDT) Case Report Surgical Pathology Report Case: [id number] Authorizing Provider: Layla Georges MD Collected: 03/23/2025 02:31 PM Ordering Location: [facility] Received: 03/24/2025 06:20 AM [facility]AMMOGRAPHY [place] Pathologist: Marquez Jackson MD Specimen: Breast, Right, RIGHT BREAST OVAL MASS WITH INDISTINCT MARGINS 03/25/2025 10:40 AM EDT [facility] Clinical Information Right breast oval mass with indistinct margins 03/25/2025 10:40 AM EDT [facility] Final Diagnosis RIGHT BREAST, 6:00, STEREOTACTIC-GUIDE D BIOPSY: Nodular fibrocystic change with dense stromal fibrosis. Calcifications present associated with benign fibrocystic change. No atypia identified. 03/25/2025 10:40 AM EDT [facility] at 1040 EDT Gross Description 1. Breast, Right. Received in formalin in a clear plastic collection device labeled right breast oval mass is a right affirm stereotactic biopsy consisting of a 4.5 x 2 x 0.3 cm aggregate of fibroadipose breast tissue fragments, submitted entirely in block 1A. Time in formalin: 1430 on 03/23/2025. Cold ischemic time is less than 60 minutes and total time in formalin is greater than 6 and less than 72 hours. LDP 03/25/2025 10:40 AM EDT [facility] Microscopic Description The slides are reviewed and demonstrate histopathologic features supporting the above rendered diagnosis. 03/25/2025 10:40 AM EDT [facility] Tissue Right breast structure / Unknown Collection / Unknown 03/23/2025 2:31 PM EDT 03/24/2025 6:20 AM EDT Layla Georges MD PATHOLOGY/CYTOLOGY ORDERABLES Final Result [facility]
[address] [place] [address], * (ABNORMAL) US Breast Right Limited (03/16/2025 12:06 PM EDT) Anatomical Region Laterality Modality Breast Right Ultrasound 03/16/2025 11:3 7 AM EDT Addenda Addendum by Layla Georges MD on 03/25/2025 11:07 AM EDT ADDENDUM: The IMPRESSION section of the report should indicate that there is an oval mass with partially OBSCURED margins in the right 6:00 region. 03/25/2025 11:[address] Layla Georges MD on Workstation: [employer] Impressions 03/16/2025 11:54 AM EDT Oval mass with partially scattered margins in the right 6:00 region. An ultrasound correlate was not identified. RECOMMENDATION: Tomosynthesis guided core biopsy of the right breast. BI-RADS CATEGORY: 4, SUSPICIOUS. CAD was utilized. The standard false-negative rate of mammography is between 10% and 25%. Complex patterns or increased breast density will markedly elevate the false-negative rate of mammography. A letter, in lay terminology, with the results of this exam was given to the patient at the time of the visit. PHYSICIANS ORDER: STEREOTACTIC/TOMOSYNTHESIS GUIDED BREAST BIOPSY DIAGNOSIS: ABNORMAL MAMMOGRAM 03/16/2025 11:[address] Layla Georges MD on Narrative 03/16/2025 11:54 AM EDT RIGHT DIAGNOSTIC MAMMOGRAM AND RIGHT BREAST ULTRASOUND HISTORY: 79-year-old patient presents for a second opinion regarding a suspicious mass noted in the right breast on outside mammographic imaging. Core biopsy was recommended. The patient has no personal or family history of breast cancer. TECHNIQUE: Right low dose, full field digital CC and MLO views were obtained with tomosynthesis. Right CC focal compression and MLO focal compression views with tomosynthesis were also obtained. Focused ultrasound images performed of the right inferior breast. The patient was scanned by the technologist and the radiologist. COMPARISON: [facility] mammograms dated 01/29/2025 and 01/14/2025. The 01/14/2025 screening mammogram report indicates that the patient has prior 2017, 2016, 2015, and 2014 mammograms. The patient did not bring prior mammograms with her. [facility] indicated that they did not have prior mammograms, upon further questioning. FINDINGS: There are scattered areas of fibroglandular density in the right breast. There is an oval mass with partially obscured margins in the posterior aspect of the 6:00 region. No suspicious groups of calcifications or areas of architectural distortion were noted on mammographic imaging. Focused ultrasound imaging of the right inferior breast demonstrates a cyst in the 7:00 subareolar region. A possible mixed echogenicity oval mass in the 6 o'clock position, 3 cm from the nipple, appears to represent normal tissue on repeat ultrasound imaging. A definite ultrasound correlate was not identified to the mammographic mass. Procedure Note Layla Georges MD - 03/16/2025 RIGHT DIAGNOSTIC MAMMOGRAM AND RIGHT BREAST ULTRASOUND HISTORY: 79-year-old patient presents for a second opinion regarding a suspicious mass noted in the right breast on outside mammographic imaging. Core biopsy was recommended. The patient has no personal or family history of breast cancer. TECHNIQUE: Right low dose, full field digital CC and MLO views were obtained with tomosynthesis. Right CC focal compression and MLO focal compression views with tomosynthesis were also obtained. Focused ultrasound images performed of the right inferior breast. The patient was scanned by the technologist and the radiologist. COMPARISON: [facility] mammograms dated 01/29/2025 and 01/14/2025. The 01/14/2025 screening mammogram report indicates that the patient has prior 2017, 2016, 2015, and 2014 mammograms. The patient did not bring prior mammograms with her. [facility] indicated that they did not have prior mammograms, upon further questioning. FINDINGS: There are scattered areas of fibroglandular density in the right breast. There is an oval mass with partially obscured margins in the posterior aspect of the 6:00 region. No suspicious groups of calcifications or areas of architectural distortion were noted on mammographic imaging. Focused ultrasound imaging of the right inferior breast demonstrates a cyst in the 7:00 subareolar region. A possible mixed echogenicity oval mass in the 6 o'clock position, 3 cm from the nipple, appears to represent normal tissue on repeat ultrasound imaging. A definite ultrasound correlate was not identified to the mammographic mass. IMPRESSION: Oval mass with partially scattered margins in the right 6:00 region. An ultrasound correlate was not identified. RECOMMENDATION: Tomosynthesis guided core biopsy of the right breast. BI-RADS CATEGORY: 4, SUSPICIOUS. CAD was utilized. The standard false-negative rate of mammography is between 10% and 25%. Complex patterns or increased breast density will markedly elevate the false-negative rate of mammography. A letter, in lay terminology, with the results of this exam was given to the patient at the time of the visit. PHYSICIANS ORDER: STEREOTACTIC/TOMOSYNTHESIS GUIDED BREAST BIOPSY DIAGNOSIS: ABNORMAL MAMMOGRAM 03/16/2025 11:[address] Layla Georges MD on us Layla Georges MD [facility] ORDERABLES Edited Resul t - Final * (ABNORMAL) Mammo Diagnostic Digital Tomosynthesis Right With CAD (03/16/2025 10:49 AM EDT) Anatomical Region Laterality Modality Breast Right Mammography 03/16/2025 11:3 7 AM EDT Addenda Addendum by Layla Georges MD on 03/25/2025 11:07 AM EDT ADDENDUM: The IMPRESSION section of the report should indicate that there is an oval mass with partially OBSCURED margins in the right 6:00 region. 03/25/2025 11:[address] Layla Georges MD on Impressions 03/16/2025 11:54 AM EDT Oval mass with partially scattered margins in the right 6:00 region. An ultrasound correlate was not identified. RECOMMENDATION: Tomosynthesis guided core biopsy of the right breast. BI-RADS CATEGORY: 4, SUSPICIOUS. CAD was utilized. The standard false-negative rate of mammography is between 10% and 25%. Complex patterns or increased breast density will markedly elevate the false-negative rate of mammography. A letter, in lay terminology, with the results of this exam was given to the patient at the time of the visit. PHYSICIANS ORDER: STEREOTACTIC/TOMOSYNTHESIS GUIDED BREAST BIOPSY DIAGNOSIS: ABNORMAL MAMMOGRAM 03/16/2025 11:[address] Layla Georges MD on Narrative 03/16/2025 11:54 AM EDT RIGHT DIAGNOSTIC MAMMOGRAM AND RIGHT BREAST ULTRASOUND HISTORY: 79-year-old patient presents for a second opinion regarding a suspicious mass noted in the right breast on outside mammographic imaging. Core biopsy was recommended. The patient has no personal or family history of breast cancer. TECHNIQUE: Right low dose, full field digital CC and MLO views were obtained with tomosynthesis. Right CC focal compression and MLO focal compression views with tomosynthesis were also obtained. Focused ultrasound images performed of the right inferior breast. The patient was scanned by the technologist and the radiologist. COMPARISON: [facility] mammograms dated 01/29/2025 and 01/14/2025. The 01/14/2025 screening mammogram report indicates that the patient has prior 2017, 2016, 2015, and 2014 mammograms. The patient did not bring prior mammograms with her. [facility] indicated that they did not have prior mammograms, upon further questioning. FINDINGS: There are scattered areas of fibroglandular density in the right breast. There is an oval mass with partially obscured margins in the posterior aspect of the 6:00 region. No suspicious groups of calcifications or areas of architectural distortion were noted on mammographic imaging. Focused ultrasound imaging of the right inferior breast demonstrates a cyst in the 7:00 subareolar region. A possible mixed echogenicity oval mass in the 6 o'clock position, 3 cm from the nipple, appears to represent normal tissue on repeat ultrasound imaging. A definite ultrasound correlate was not identified to the mammographic mass. Procedure Note Layla Georges MD - 03/16/2025 RIGHT DIAGNOSTIC MAMMOGRAM AND RIGHT BREAST ULTRASOUND HISTORY: 79-year-old patient presents for a second opinion regarding a suspicious mass noted in the right breast on outside mammographic imaging. Core biopsy was recommended. The patient has no personal or family history of breast cancer. TECHNIQUE: Right low dose, full field digital CC and MLO views were obtained with tomosynthesis. Right CC focal compression and MLO focal compression views with tomosynthesis were also obtained. Focused ultrasound images performed of the right inferior breast. The patient was scanned by the technologist and the radiologist. COMPARISON: [facility] mammograms dated 01/29/2025 and 01/14/2025. The 01/14/2025 screening mammogram report indicates that the patient has prior 2017, 2016, 2015, and 2014 mammograms. The patient did not bring prior mammograms with her. [facility] indicated that they did not have prior mammograms, upon further questioning. FINDINGS: There are scattered areas of fibroglandular density in the right breast. There is an oval mass with partially obscured margins in the posterior aspect of the 6:00 region. No suspicious groups of calcifications or areas of architectural distortion were noted on mammographic imaging. Focused ultrasound imaging of the right inferior breast demonstrates a cyst in the 7:00 subareolar region. A possible mixed echogenicity oval mass in the 6 o'clock position, 3 cm from the nipple, appears to represent normal tissue on repeat ultrasound imaging. A definite ultrasound correlate was not identified to the mammographic mass. IMPRESSION: Oval mass with partially scattered margins in the right 6:00 region. An ultrasound correlate was not identified. RECOMMENDATION: Tomosynthesis guided core biopsy of the right breast. BI-RADS CATEGORY: 4, SUSPICIOUS. CAD was utilized. The standard false-negative rate of mammography is between 10% and 25%. Complex patterns or increased breast density will markedly elevate the false-negative rate of mammography. A letter, in lay terminology, with the results of this exam was given to the patient at the time of the visit. PHYSICIANS ORDER: STEREOTACTIC/TOMOSYNTHESIS GUIDED BREAST BIOPSY DIAGNOSIS: ABNORMAL MAMMOGRAM 03/16/2025 11:[address] Layla Georges MD on Workstation: [employer] Layla Georges MD IMG MAMMOGRAPHY ORDERABLES Travis danay Result - Final * [facility] RISK ASSESSMENT QUESTIONNAIRE - , (03/13/2025 4:03 PM EDT) Nicolás 1.1 [employer]AN [employer] GENETICS NCCN NCCN not met [facility] Comment:High Risk Cancer Ris k Assessment 03/13/2025 4:03 PM EDT Erick Herrera MD GENETIC TESTING Final Result [facility]
[address] [place] [address], [place] [phone] from Last 3 Months Insurance MEDICARE A & B [facility] [employer] Care Teams Tool Room Machinist Relationship Specialty Start Date End Date Erick Herrera MD [address] [place] [address] PCP - General Family Medicine 03/16/25
--- OUTSIDE RECORDS SUMMARY | 2025-06-01 09:25 | XMS_ITS | Clinical Summary ---
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 (ICD-10-CM ) 02/03 Active 02/03 Susie Byrd Personal history of other infectious and parasitic diseases Helicobacter pylori gastritis (B96.81) 36655562 (SNOMED CT) 02/03 Active 02/03 Susie Byrd Helicobacter-ass ociated gastritis Macular degeneration 272818460 (SNOMED CT) 11/03 Inactive 11/03 Susie Byrd Degenerative disorder of macula Pulmonary nodule 656409617 (SNOMED CT) 05/02 Inactive 05/02 Susie Byrd Solitary nodule of lung Underweight 566155399 (SNOMED CT) 12/13 Inactive 12/13 Susie Byrd Underweight + AFB in sputum R84.5 (ICD-10-CM ) 05/05 Inactive 05/05 Susie Byrd Abnormal microbiological findings in specimens from respiratory organs and thorax Macular degeneration 094615579 (SNOMED CT) 11/03 Removed 11/03 Manuel Reeder MD Degenerative disorder of macula + AFB in sputum R84.5 (ICD-10-CM ) 05/05 Removed 05/05 Susie Byrd Abnormal microbiological findings in specimens from respiratory organs and thorax Hx of lumbar spine surgery (not billable after 07/28/2016) 760510625 (SNOMED CT) 01/29 Inactive 01/29 Susie Byrd Operation on lumbar spine 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 05/03 Susie Byrd Other pulmonary aspergillosis Hx of lumbar spine surgery (not billable after 07/28/2016) 565839874 (SNOMED CT) 01/29 Removed 01/29 Manuel Reeder MD Operation on lumbar spine History of PNA (recurrent) 221501669 (SNOMED CT) 12/16 Active 12/16 Susie Byrd History of recurrent pneumonia Parkinson's disease 90715094 (SNOMED CT) 05/02 Active 05/02 Susie Byrd Parkinson's disease PNEUMONIA 396218426 (SNOMED CT) 05/02 Inactive 05/02 Susie Byrd Pneumonia Pulmonary nodule 363610882 (SNOMED CT) 05/02 Removed 05/02 Susie Byrd Solitary nodule of lung Weight loss 76806562 (SNOMED CT) 05/03 Inactive 05/03 Susie Byrd Weight loss Pulmonary MAC A31.0 (ICD-10-CM ) 06/21 Active 06/21 Susie Byrd Pulmonary mycobacterial infection Underweight 364024923 (SNOMED CT) 12/13 Removed 12/13 Aniyah S Underweight 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 73801243 (SNOMED CT) 05/03 Inactive 05/03 Susie Byrd 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 PULMONARY MAC A31.0 (ICD-10-CM ) 06/21 Inactive 06/21 Susie Byrd Pulmonary mycobacterial infection + AFB R89.9 (ICD-10-CM ) 05/05 Inactive 05/05 Susie Byrd Unspecified abnormal finding in specimens from other organs, systems and tissues Weight loss 37922406 (SNOMED CT) 05/03 Removed 05/03 Manuel Reeder MD Weight loss Aspergillosi s 55753662 (SNOMED CT) 05/03 Inactive 05/03 Manuel Reeder MD Aspergillosis 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 20473434 (SNOMED CT) 05/03 Removed 05/03 Manuel Reeder MD 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 PULMONARY NODULE 44215638 (SNOMED CT) 05/02 Inactive 05/02 Susie Byrd Disorder of lung PARKINSON'S DISEASE 44238075 (SNOMED CT) 05/02 Inactive 05/02 Susie Byrd Parkinson's disease PNEUMONIA 787966583 (SNOMED CT) 05/02 Removed 05/02 Susie Byrd Pneumonia COPD 81679736 (SNOMED CT) 05/02 Active 05/02 Susie Byrd Chronic obstructive pulmonary disease Medications Medication Instructions Start Date Stop Date Generic Name NDC Provider ALENDRONATE SODIUM TABLET ALENDRONATE SODIUM TABS 04012076699 Manuel Reeder MD TETRACYCLINE HCL 500 MG CAPS one 4 times a day TETRACYCLINE HCL 53543508797 Manuel Reeder MD LEVAQUIN 250 MG ORAL TABLET one twice a day LEVOFLOXACIN 57605892063 Manuel Reeder MD AZITHROMYCIN 250 MG TABS Take 1 tablet by mouth daily AZITHROMYCIN 18963396431 Chela Santamaria LEVAQUIN 500 MG ORAL TABLET 1/2 tab daily 04/13 LEVOFLOXACIN 47542136182 Chela Santamaria DOXYCYCLINE HYCLATE 100 MG CAPS Take one by mouth daily 04/13 DOXYCYCLINE HYCLATE 18325021056 Chela Santamaria TRAZODONE HCL 50 MG TABS Take one by mouth daily TRAZODONE HCL 66906308344 Tatyana Cadenadox REQUIP XL 8 MG ORAL TABLET EXTENDED RELEASE 24 HOUR ROPINIROLE HCL 29980118367 Tatyana Cadenadox OMEPRAZOLE 40 MG CPDR Take one by mouth daily OMEPRAZOLE 90788061255 Tatyana Couch LISINOPRIL-HYDROCH LOROTHIAZIDE 10-12.5 MG TABS LISINOPRIL-HYDROCH LOROTHIAZIDE 24605686207 Tatyana Couch LEVAQUIN 500 MG ORAL TABLET 1/2 tab daily 01/26 LEVOFLOXACIN 61971895619 Tatyana Couch DOXYCYCLINE HYCLATE 100 MG CAPS Take one by mouth daily 02/02 DOXYCYCLINE HYCLATE 01018991020 Tatyana Couch CHLORDIAZEPOXIDE HCL 25 MG CAPS CHLORDIAZEPOXIDE HCL 14717497142 Tatyana Couch AMANTADINE HCL 50 MG/5ML ORAL SYRUP AMANTADINE HCL 00299627438 Tatyana Couch ALINIA 500 MG ORAL TABLET by mouth twice a day x 10 days NITAZOXANIDE 33042503900 Tatyana Couch ACTONEL 5 MG ORAL TABLET RISEDRONATE SODIUM 30055547414 Tatyana Cadenadox ACTONEL 35 MG TABS 02/25 RISEDRONATE SODIUM 54481627233 Tatyana Couch AMANTADINE HCL 100 MG CAPS 02/25 AMANTADINE HCL 33759975085 Tatyana Couch CALCIUM + D TABLET 02/25 CALCIUM CITRATE-VITAMIN D TABS 34062523516 Tatyana Couch CHLORDIAZEPOXIDE HCL 25 MG CAPS 02/25 CHLORDIAZEPOXIDE HCL 03204981659 Tatyana Couch REQUIP XL 8 MG ORAL TABLET EXTENDED RELEASE 24 HOUR 0 02/25 ROPINIROLE HCL 86482168171 Tatyana Couch TRAZODONE HCL 50 MG TABS 02/25 TRAZODONE HCL 86306485293 Tatyana Rosalesx VITAMIN C CAPS 02/25 ASCORBIC ACID CAPS 49905235872 Tatyana Couch BIAXIN 500 MG ORAL TABLET 1 by mouth daily 0 02/25 CLARITHROMYCIN 29868809323 Tatyana Couch ETHAMBUTOL HCL 400 MG TABS one tablet po daily 0 02/25 ETHAMBUTOL HCL 85788359659 Tatyana Rosalesx ETHAMBUTOL HCL 400 MG TABS one tablet po daily 02/25 ETHAMBUTOL HCL 60263780142 Manuel Reeder MD BIAXIN 500 MG ORAL TABLET 1 by mouth daily 02/25 CLARITHROMYCIN 30260673444 Manuel Reeder MD VITAMIN C CAPS 02/25 ASCORBIC ACID CAPS 79436528795 April Hull TRAZODONE HCL 50 MG TABS 02/25 TRAZODONE HCL 93645024254 April Hull REQUIP XL 8 MG ORAL TABLET EXTENDED RELEASE 24 HOUR 02/25 ROPINIROLE HCL 83941196041 April Hull CHLORDIAZEPOXIDE HCL 25 MG CAPS 01/26 CHLORDIAZEPOXIDE HCL 29670261803 April Hull CALCIUM + D TABLET 02/25 CALCIUM CITRATE-VITAMIN D TABS 69289988779 April Hull AMANTADINE HCL 100 MG CAPS 04/27 AMANTADINE HCL 44715363703 April Hull ACTONEL 35 MG TABS 02/25 RISEDRONATE SODIUM 89362480267 April Hull Medications Administered No information available. Allergies, Adverse Reactions, Alerts Allergy Name Reaction Description Start Date Severity Statu s Provider PCN rash Moderate Active Manuel tovar MD Results Date Name Value Unit Range Flag Description Lab Report: IgG, Subclasses( 1-4), Immunoglobulins A/E/G/M, Serum IGE SER QN 7 [iU]/mL 0-100 immunoglob ulin E, serum, quantitative IGM SERUM 76 mg/dL 40-230 IgM, serum IGA SERUM 158 mg/dL 91-414 IgA, serum IGG SUBCL 4 8 mg/dL 1-291 IgG subcl ass 4, serum IGG SUBCL 3 89 mg/dL 41-129 IgG subcl ass 3, serum IGG SUBCL 2 153 mg/dL 117-747 IgG subcl ass 2, serum IGG SUBCL 1 518 mg/dL 422-1292 IgG subc lass 1, serum IGG SERUM 840 mg/dL 700-1600 IgG, serum Lab Report: CBC w Auto Diff BASOPHIL % 0.4 % 0.0-1.0 N Basophils/ 100 leukocytes in Blood by Manual count MONOCYTE BF 7.6 % 0.0-12.0 N monocyte s as percent of body fluid leukocytes NEUTROP BF 73.1 % 41.0-71.0 H Neutroph ils/100 leukocytes in Body fluid BASOABSOLMAN 0.04 K/MCL {Cells}/ uL 0.00-0.20 N basophils, absolute, manual MONOCYTABMAN 0.71 K/MCL {Cells}/ uL 0.00-1.00 N monocytes, absolute, manual LYMPHSABSMAN 1.58 K/MCL {Cells}/ uL 0.60-4.80 N lymphocytes, absolute, manual RDW_ 14.6 11.3-14.5 H RDW, no uni ts Lab Report: CBC WITH AUTO DI FFERENTIAL IMMATUREGRAN 0.03 10*3/MM3 0.00-0.03 Immature granulocytes [#/volume] in Blood BASO# 0.03 10*3/mm3 0.00-0.20 Basophils [#/vol ume] in Blood EOS ABSLT 0.18 10*3/uL 0.10-0.30 Eosinophi ls [#/volume] in Blood MONOSCT AUTO 0.66 10*3/uL 0.00-1.00 Monocy macho [#/volume] in Blood by Automated count LYMPHCT AUTO 1.48 10*3/mm3 0.60-4.80 Lymph ocytes [#/volume] in Blood by Automated count ABS NEUTROPH 4.82 10*3/uL 1.50-8.30 Neutro phils [#/volume] in Blood IMM GRANU % 0.4 % 0.0-0.6 Immature granulocytes/100 leukocytes in Blood [id number] 0.4 % 0.0-1.0 GE use only - for [employer] import when terms are not otherwise specified % EOS AUTO 2.5 % 0.0-3.0 Eosinophil s/100 leukocytes in Blood by Automated count MONOCYTE % 9.2 % 0.0-12.0 Monocytes /100 leukocytes in Blood by Automated count LYMPHOCY BF 20.6 % 24.0-44.0 L lymphoc ytes as percent of body fluid leukocytes PMN % 66.9 % 41.0-71.0 Neutrophils /100 leukocytes in Blood by Automated count PLATELETS 209 10*3/mm3 150-450 Platelets [#/volume] in Blood by Automated count RDW 14.6 % 11.3-14.5 H Erythrocyte distribution width [Ratio] by Automated count MCHC 31.2 G/DL 32.0-36.0 L MCHC [Mass/ volume] by Automated count MCH 29.5 pg 27.0-31.0 MCH [Entiti c mass] by Automated count MCV 94.4 fL 80.0-99.0 MCV [Entiti c volume] by Automated count HCT 39.1 % 34.5-44.0 Hematocrit [Volume Fraction] of Blood by Automated count HGB 12.2 g/dL 11.5-15.5 Hemoglobin [Mass/volume] in Blood RBC 4.14 10*6/mm3 3.89-5.14 Erythrocyt es [#/volume] in Blood by Automated count WBC 7.20 10*3/mm3 3.50-10.8 0 Leukocytes [#/volume] in Blood by Automated count Lab Report: SEDIMENTATION RA TE ESR 38 mm/h 0-30 H Erythrocyte sedimentation rate by Westergren method Lab Report: COMPREHENSIVE ME TABOLIC PANEL ANIONGAP 7.0 mmol/L 3.0-11.0 anion gap, serum BUN/CREAT 8.8 7.0-25.0 Urea nitrogen/Creatinine [Mass Ratio] in Serum or Plasma GFRC 71 mL/min/1 .73m2 >60 Glomerular Filtration Rate Calculation BILI TOTAL 0.2 mg/dL 0.3-1.2 L Bilirubin. total [Mass/volume] in Serum or Plasma ALK PHOS 97 U/L 25-100 Alkaline stefany sphatase [Enzymatic activity/volume] in Blood SGOT (AST) 16 U/L 0-33 Aspartate aminotransferase [Enzymatic activity/volume] in Serum or Plasma SGPT (ALT) 24 U/L 7-40 Alanine aminotransferase [Enzymatic activity/volume] in Serum or Plasma ALBUMIN 3.90 g/dL 3.20-4.80 Albumin [Mass/volume] in Serum or Plasma PROTEIN, TOT 6.4 g/dL 5.7-8.2 Protein [Mass/volume] in Serum or Plasma CALCIUM 9.7 mg/dL 8.7-10.4 Calcium [Moles/volume] in Serum or Plasma CO2 31.0 mmol/L 20.0-31.0 Carbon diox susy, total [Moles/volume] in Venous blood CHLORIDE 101 mmol/L 99-109 Chloride [Moles/volume] in Serum or Plasma POTASSIUM 4.6 mmol/L 3.5-5.5 Potassium [Moles/volume] in Serum or Plasma SODIUM 139 mmol/L 132-146 Sodium [Moles/volume] in Serum or Plasma CREATININE 0.80 mg/dL 0.60-1.30 Creatini ne [Mass/volume] in Serum or Plasma BUN 7 mg/dL 9-23 L Urea nitrogen [Mass/volume] in Serum or Plasma GLUCOSE SER 108 mg/dL 70-100 H Glucose [Mass/volume] in Serum or Plasma Rx Refill: eRx Request for E THAMBUTOL TABS 400MG [facility]_RR [id number]`E THAMBUTOL TABS 400MG`400MG ``90 Tablet``JORDY E 1 TABLET DAILY``1`0` 10/09/2016` 01/31/2017` [facility] Mail Electronic* `[id number] `[id number] 1``ETHAMBUT OL TABS 400MG Quantity: 90 Tablet Instruction s: TAKE 1 TABLET DAILY B e-scripts roly [place] refill request Office Visit: [id number] ORALTOBACUSE Never Tobacco smoking status SMOK STATUS Never smoker Tobacco smoking status MEDS REVIEW Done Documenta tion of current medications (procedure) Plan of Care Type Date Detail Referral CT Chest w/o con trast Referral CT Chest w/o con trast Pending order X-Ray, Chest, PA & Lateral Pending order Discontinue oral antibiotics Pending order X-Ray, Chest, PA & Lateral Pending order New Oral Antibio tic Pending order X-Ray, Chest, PA & Lateral Pending order AFB Culture & Se nsitivity Pending order Sputum for AFB Pending order X-Ray, Chest, PA & Lateral Pending order Continue oral an tibiotics Pending order CMP Pending order CBC with Differe ntial Pending order Sedimentation Ra te (ESR) Pending order Continue oral an tibiotics Pending order CMP Pending order CBC with Differe ntial Pending order Sedimentation Ra te (ESR) Pending order Hepatitis C Atb: (ICD 10 Code: Z11.59) Pending order Continue oral an tibiotics Pending order CMP Pending order CBC with Differe ntial Pending order Sedimentation Ra te (ESR) Pending order AFB Culture & Se nsitivity Pending order Sputum for funga l culture Pending order CMP Pending order CBC w/o Differen tial Pending order Sedimentation Ra te (ESR) Pending order Continue oral an tibiotics Pending order CMP Pending order CBC with Differe ntial Pending order Sedimentation Ra te (ESR) Pending order New Oral Antibio tic Pending order Immunoglobulins Quant (IGG,IGA,IGE,IGM) Pending order IGG Subclasses ( 1-4) Pending order Sputum for AFB Pending order Sputum for AFB Pending order Sputum for AFB Pending order Fungal Culture & Sensitivity Pending order Fungal Culture & Sensitivity Pending order Fungal Culture & Sensitivity Patient education Medications Patient education Medications Patient education Medications Procedures Code Procedure Name Date Entry Date CPT-61920 CMP [id number] CBC with Differential 2015 CPT-06530 Sedimentation Rate (ESR) 201 04/08/06 CPT-Cooral Continue oral antibiotics 20 12/06/16 CPT-78126 CMP [id number] CBC with Differential 2015 CPT-41086 Sedimentation Rate (ESR) 201 04/04/16 30595 Hepatitis C Atb: (ICD 10 Code: Z11.59) 20 12/06/15 CPT-Cooral Continue oral antibiotics 20 13/12/15 CPT-19536 CMP [id number] CBC with Differential 2015 CPT-28650 Sedimentation Rate (ESR) 201 03/29/16 CPT-AFBC AFB Culture & Sensitivity 20 13/12/15 CPT-spfun Sputum for fungal culture 20 13/12/15 CPT-74901 CT Chest w/o contrast 12/13 CPT-63765 CT Chest w/o contrast 11/06 CPT-28128 CMP CPT-57441 CBC w/o Differential CPT-07973 Sedimentation Rate (ESR) 201 03/07/10 CPT-Cooral Continue oral antibiotics 20 11/06/04 CPT-12032 CMP [id number] CBC with Differential 2014 CPT-19710 Sedimentation Rate (ESR) 201 03/04/04 CPT-julio New Oral Antibiotic CPT-18368 Immunoglobulins Quant (IGG,IGA,IGE,IGM) 2 CPT-21634 IGG Subclasses (1-4) CBT-sfafb Sputum for AFB CBT-sfafb Sputum for AFB CBT-sfafb Sputum for AFB CPT-cf Fungal Culture & Sensitivity CPT-cf Fungal Culture & Sensitivity CPT-cf Fungal Culture & Sensitivity Vital Signs Date Name Value Unit Description BMI (Body Mass Index) 20.50 kg/m2 Bod y Mass Index (Ratio) Body Temperature 97.8 [degF] temperat ure E&M BP Diastolic 78 mm[Hg] blood pressu re, diastolic BP Systolic 128 mm[Hg] blood pressur e, systolic Heart Rate 110 /min pulse rate Respiratory Rate 16 /min respirat ory rate E&M Weight Measured 127 [lb_av] weight E& M Weight Measured 127 [lb_av] weight E& M Height 66 [in_us] height E&M BSA (Body Surface Area) 1.46 b kaitlin surface area Immunizations Vaccine Administration Date Standard Description CVX Co de Dose Afluria Intramuscular Suspension Afluria Intramuscular Suspension 141 Unknown Advance Directives Directive Description Start Date LIVING WILL -NOT ON FILE WITH CB NO LIVING WILL
--- OUTSIDE RECORDS SUMMARY | 2025-06-01 09:25 | XMS_ITS | Clinical Summary ---
Author Organization [facility] Address [address] [place] [address] Care Team Providers Care Electrical Engineering Technologist Name Role Phone Erick Herrera MD Primary Care Provider [phone] Allergies Active Allergy Reactions Criticality Noted Date Comments Latex Unknown - Patient st ates they do not know rxn details Low 07/15/2019 Penicillins Rash,Unknown - Patie nt states they do not know rxn details Low 07/15/2019 Medications alendronate (Fosamax) 70 MG tablet 01/19/2019 Active amantadine (Symmetrel) 100 MG capsule 07/08/2019 Active chlordiazePOXIDE (Librium) 25 MG capsule 01/27/2019 Active glycopyrrolate (Robinul) 2 MG tablet 01/19/2019 Active HYDROcodone-acetam inophen (Weston) 5-325 MG tablet 04/07/2019 Act uli levoFLOXacin (Levaquin) 250 MG tablet 04/13/2019 Active nystatin-triamcino lone (Mycolog II) ointment 07/13/2019 Active omeprazole (PriLOSEC) [address] capsule 04/13/2019 Active rOPINIRole XL (Requip XL) 8 MG 24 hr tablet 01/27/2019 Active tetracycline 500 MG capsule 04/13/2019 Active traMADol (Ultram) 50 MG tablet 11/29/2020 Active traZODone (Desyrel) 50 MG tablet 01/27/2019 Active triamcinolone (Kenalog) 0.1 % cream 03/16/2019 Active Social History Tobacco Use Types Packs/Day Years Used Date Smoking Tobacco: Passive Smo ke Exposure - Never Smoker Alcohol Use Standard Drinks/Week Comments No 0 (1 standard drink = 0.6 oz pur e alcohol) Comments Unknown Sex and Gender Information Value Date Recorded Sex Assigned at Not on file Legal Sex Female 7:59 PM EDT Gender Identity Not on file Sexual Orientation Not on file Last Filed Vital Signs Vital Sign Reading Time Taken Comments Blood Pressure 170/78 02/28/2021 12:19 PM EDT Pulse 82 02/28/2021 12:19 PM EDT Temperature - - Respiratory Rate - - Oxygen Saturation - - Inhaled Oxygen Concentration - - Weight 54.4 kg (119 lb 15.9 oz) 021 12:19 PM EDT Height 167.6 cm (5' 6 ) 02/28/2021 12:1 9 PM EDT Body Mass Index 19.37 02/28/2021 12:19 PM EDT Plan of Treatment Health Maintenance Due Date Last Done Comments [facility]-Bone Density Scan 1945 [facility]-Depression Screening 1945 [facility]-Hepatitis C Screening 1945 [facility]-Medicare Annual Wellness (AWV) 1945 [facility]-/Child/Adol SDOH Screenings 1945 [facility]- SDOH Screenings 1963 [facility]-Adult SDOH Screenings 1963 [facility]-Pneumococcal Vaccine: 50+ Years (1 of 2 - PCV) 1964 01/03/2015 [facility]-Zoster Vaccines (1 of 2) 1995 [facility]-RSV Vaccine: 60+ Years or (1 - 1-dose 75+ series) 2020 [id number] Vaccine ( season) 2024 07/27/2022, 02/09/2022, 09/04/2021, Additional history exists [facility]-Influenza Vaccine (#1) 06/28/202507/27, 08/25/2021, 08/09/2020, Additional history exists [facility]-DTaP,Tdap,and Td Vaccines (2 - Td or Tdap) 05/01/2026 05/01/2016 HPV Vaccines Aged Out No longer eligi ble based on patient's age to complete this topic [facility]-HIB Vaccines Aged Out No longer e ligible based on patient's age to complete this topic [facility]-Hepatitis A Vaccines Aged Out No longer eligible based on patient's age to complete this topic [facility]-IPV Vaccines Aged Out No longer e ligible based on patient's age to complete this topic [facility]-Rotavirus Vaccines Aged Out No lo nger eligible based on patient's age to complete this topic Insurance MEDICARE [facility] Care Teams Electrical Engineering Technologist Relationship Specialty Start Date End Date Erick Herrera MD [address] [place] [address] #1 #1 ED Smith [address] PCP - General 03/10/21
--- NOTE | 2025-06-01 09:26 | XR_ITS ---
FINAL REPORT TECHNIQUE: Chest PA & Lateral CLINICAL HISTORY: CHEST TIGHTNESS COMPARISON: 12/30/2024 FINDINGS: 2 views of the chest were performed. The heart size is normal. The mediastinum is within normal limits. Coarse interstitial opacity in both lungs is probably chronic. There are no pleural effusions. There is no pneumothorax. Thoracolumbar scoliosis convex to the left measures 50 degrees. IMPRESSION: Likely chronic bilateral coarse interstitial opacity. Reviewed, Interpreted and Dictated by Leroy Perea MD Transcribed by Vesta Rodriguez Authenticated and . [facility]
== END 2025-06-01 23:59 | disposition home or self-care (01) ==
LOC: RAD 09:22
PROVIDERS: PCP Family Medicine; Visit Provider Family Medicine
DX: R07.89 Other chest pain (principal)
CPT/HCPCS: 71046